=== PATIENT | male | born 1950 | race Caucasian/White ===

== ENCOUNTER 2017-01-17 10:23 | Emergency (ER) | payer OTHER ==
[~2017-01-17] VITALS: Ht 170.2 cm; Wt 84.6 kg
[2017-01-17 11:47] LABS: HEMATOCRIT 45.1 % (38.0-50.0); MCH 28.8 PG (29.0-34.0); MCHC 34.1 G/DL (30.0-36.0); MCV 84.3 FL (86-99); MEAN PLAT.VOLUME 9.4 uM^3 (9.0-12.4); PLATELET COUNT 335 K/uL (156-360); RBC DIS.WIDTH-CV 15.1 % (11.8-14.6); RBC DIS.WIDTH-SD 46.2 % (39-53); RED BLOOD COUNT 5.35 M/uL (4.00-5.50); WHITE BLOOD COUNT 10.6 K/uL (4.1-10.2)
[2017-01-17 12:02] LABS: CHLORIDE 99 mEq/L (99-109); SODIUM 134 mEq/L (136-147)
[2017-01-17 12:04] LABS: GLUCOSE 141 mg/dL (70-99)
[2017-01-17 12:05] LABS: ANION GAP 13 MEQ/L (2-14)
[2017-01-17 12:06] LABS: TOTAL BILIRUBIN 0.3 mg/dL (0.0-1.0)
[2017-01-17 12:07] LABS: ALKALINE PHOSPHATASE 92 IU/L (3-129)
[2017-01-17 12:08] LABS: GFR ESTIMATE (CALCULATED) > 59 mL/min/
[2017-01-17 12:09] LABS: UREA NITROGEN (BUN) 15 mg/dL (9-23)
[2017-01-17 12:11] LABS: LIPASE 71 U/L (1.0-51.0)
[2017-01-17] MEDS ORDERED: MIRALAX255 GM PO (14:11)
[2017-01-17] MEDS ORDERED: FLEET ENEMA-AD118 ML PR (14:12)
[2017-01-17 14:31] VITALS: BP 140/90
== END 2017-01-17 14:50 | disposition home or self-care (01) ==
LOC: EME 10:23
PROVIDERS: Emergency Medicine
DX: K59.00 Constipation, unspecified (principal); N20.0 Calculus of kidney; K76.0 Fatty (change of) liver, not elsewhere classified; Z87.442 Personal history of urinary calculi; Z87.891 Personal history of nicotine dependence; Z90.49 Acquired absence of other specified parts of digestive tract
CPT/HCPCS: 74177; 80053; 83690; 85027; 99281; 99284; J7030